=== PATIENT | male | born 1970 | race Caucasian/White ===

== ENCOUNTER 2019-06-08 09:05 | Emergency (ER) | payer SELFPAY ==
[~2019-06-08] VITALS: Ht 175.3 cm; Wt 83.3 kg
[~2019-06-08 09:05] MED LIST: no home meds
[2019-06-08 09:30] VITALS: BP 131/77
[2019-06-08] MEDS ORDERED: IV NORMAL SALINE 1000ML BAG 1,000 ML IV ONE (09:45)
--- NOTE | 2019-06-08 09:56 | PHYS DOC ---
Past Medical History Past Medical History: Asthma Past Surgical History: No Surgical History Alcohol Use: None Drug Use: None Adult General Chief Complaint Chief Complaint: ABDOMINAL PAIN HPI HPI Patient is a 48 year old male patient with history of asthma presented to the ED today complaining of moderate right upper quadrant abdominal pain for 2 weeks with nausea and vomiting and diarrhea for 2 days. Patient denies any hematemesis or melena. Denies any exacerbating or relieving factors. He states is not able to eat due to his symptoms. He reports he was seen at [place] a freestanding clinic for asthma symptoms and they told him to follow-up with a general surgeon as an outpatient for his gallbladder problems. He states he could not get any help over the foreign when he called the number they gave him. He also reports he was supposed to have his gallbladder removed in July 2018 but left the hospital AGAINST MEDICAL ADVICE. Review of Systems Review of Systems Constitutional: Denies fever or chills [] Eyes: Denies change in visual acuity, redness, or eye pain [] HENT: Denies nasal congestion or sore throat [] Respiratory: Denies cough or shortness of breath [] Cardiovascular: No additional information not addressed in HPI [] GI: Reports right upper quadrant abdominal pain with nausea vomiting and diarrhea : Denies dysuria or hematuria [] Musculoskeletal: Denies back pain or joint pain [] Integument: Denies rash or skin lesions [] Neurologic: Denies headache, focal weakness or sensory changes [] All other systems were reviewed and found to be within normal limits, except as documented in this note. Current Medications Current Medications Current Medications Medications (Trade) Dose Ordered Sig/[facility] Start Time Stop Time Status Last Admin Dose Admin Fentanyl Citrate (Fentanyl 2ml Vial) 50 mcg 1X ONCE 06/08/19 10:15 06/08/19 10:16 DC 06/08/19 10:06 50 MCG Ondansetron HCl (Zofran) 4 mg 1X ONCE 06/08/19 10:15 06/08/19 10:16 DC 06/08/19 10:03 4 MG Sodium Chloride 1,000 ml @ 1,000 mls/hr 1X ONCE 06/08/19 09:45 06/08/19 10:44 DC 06/08/19 10:03 1,000 MLS/HR Allergies Allergies Allergies Coded Allergies Type Severity Reaction Last Updated Verified No Known Drug Allergies 07/19/18 No Physical Exam Physical Exam Constitutional: Well developed, well nourished, no acute distress, non-toxic appearance. [] HENT: Normocephalic, atraumatic, bilateral external ears normal, oropharynx moist, no oral exudates, nose normal. [] Eyes: PERRLA, EOMI, conjunctiva normal, no discharge. [] Neck: Normal range of motion, no tenderness, supple, no stridor. [] Cardiovascular:Heart rate regular rhythm, no murmur [] Lungs & Thorax: Bilateral breath sounds clear to auscultation [] Abdomen: Bowel sounds normal, soft, mild tenderness in the right upper quadrant +negative Maciel sign, no right lower quadrant tenderness, no masses, no pulsatile masses. [] Skin: Warm, dry, no erythema, no rash. [] Back: No tenderness, no CVA tenderness. [] Extremities: No tenderness, no cyanosis, no clubbing, ROM intact, no edema. [] Neurologic: Alert and oriented X 3, normal motor function, normal sensory function, no focal deficits noted. [] Psychologic: Affect normal, judgement normal, mood normal. [] Current Patient Data Vital Signs Vital Signs Date Time Temp Pulse Resp B/P (MAP) Pulse Ox O2 Delivery O2 Flow Rate FiO2 06/08/19 10:06 20 99 Room Air 06/08/19 09:30 98.5 73 131/77 (95) 98.5 Lab Values Laboratory Tests Test 06/08/19 10:00 White Blood Count 5.3 x10^3/uL (4.0-11.0) Red Blood Count 5.49 x10^6/uL (4.30-5.70) Hemoglobin 17.2 g/dL (13.0-17.5) Hematocrit 49.6 % (39.0-53.0) Mean Corpuscular Volume 90 fL (79-100) Mean Corpuscular Hemoglobin 31 pg (25-35) Mean Corpuscular Hemoglobin Concent 35 g/dL (31-37) Red Cell Distribution Width 13.7 % (11.5-14.5) Platelet Count 168 x10^3/uL (140-400) Neutrophils (%) (Auto) 90 % (31-73) H Lymphocytes (%) (Auto) 8 % (24-48) L Monocytes (%) (Auto) 3 % (0-9) Eosinophils (%) (Auto) 0 % (0-3) Basophils (%) (Auto) 0 % (0-3) Neutrophils # (Auto) 4.8 x10^3/uL (1.8-7.7) Lymphocytes # (Auto) 0.4 x10^3/uL (1.0-4.8) L Monocytes # (Auto) 0.1 x10^3/uL (0.0-1.1) Eosinophils # (Auto) 0.0 x10^3/uL (0.0-0.7) Basophils # (Auto) 0.0 x10^3/uL (0.0-0.2) Segmented Neutrophils % 93 % (35-66) H Band Neutrophils % 2 % (0-9) Lymphocytes % 3 % (24-48) L Monocytes % 2 % (0-10) Platelet Estimate Adequate (ADEQUATE) Urine Color Nataliya Urine Clarity Clear Urine pH 6.0 Urine Specific [place] >=1.030 Urine Protein Negative mg/dL (NEG-TRACE) Urine Glucose (UA) Negative mg/dL (NEG) Urine Ketones (Stick) Negative mg/dL (NEG) Urine Blood Negative (NEG) Urine Nitrite Negative (NEG) Urine Bilirubin Small (NEG) Urine Urobilinogen Dipstick 0.2 mg/dL (0.2 mg/dL) Urine Leukocyte Esterase Negative (NEG) Urine RBC 0 /HPF (0-2) Urine WBC Occ /HPF (0-4) Urine Squamous Epithelial Cells None /LPF Urine Bacteria 0 /HPF (0-FEW) Urine Mucus Marked /LPF Sodium Level 141 mmol/L (136-145) Potassium Level 3.9 mmol/L (3.5-5.1) Chloride Level 106 mmol/L (98-107) Carbon Dioxide Level 24 mmol/L (21-32) Anion Gap 11 (6-14) Blood Urea Nitrogen 13 mg/dL (8-26) Creatinine 1.0 mg/dL (0.7-1.3) Estimated GFR (Cockcroft-Gault) 79.4 BUN/Creatinine Ratio 13 (6-20) Glucose Level 140 mg/dL (70-99) H Calcium Level 8.7 mg/dL (8.5-10.1) Total Bilirubin 0.4 mg/dL (0.2-1.0) Aspartate Amino Transferase (AST) 23 U/L (15-37) Alanine Aminotransferase (ALT) 14 U/L (16-63) L Alkaline Phosphatase 46 U/L (46-116) Total Protein 7.6 g/dL (6.4-8.2) Albumin 3.9 g/dL (3.4-5.0) Albumin/Globulin Ratio 1.1 (1.0-1.7) Lipase 93 U/L (73-393) Urine Opiates Screen Neg (NEG) Urine Methadone Screen Neg (NEG) Urine Barbiturates Neg (NEG) Urine Phencyclidine Screen Neg (NEG) Urine Amphetamine/Methamphetamine Neg (NEG) Urine Benzodiazepines Screen Neg (NEG) Urine Cocaine Screen Neg (NEG) Urine Cannabinoids Screen Neg (NEG) Ethyl Alcohol Level < 10 mg/dL (0-10) Urine Ethyl Alcohol Neg (NEG) Laboratory Tests 06/08/19 10:00 Laboratory Tests 06/08/19 10:00 EKG EKG [] Radiology/Procedures Radiology/Procedures []PROCEDURE: ABDOMEN LTD EXAM: Abdomen sonogram. HISTORY: Right upper quadrant pain. Cholelithiasis. TECHNIQUE: Sonographic imaging of the abdomen was performed. COMPARISON: 07/19/2018. FINDINGS: The liver is normal in size. No focal hepatic lesion is seen. The bladder wall is upper normal in thickness. There is cholelithiasis. There is a positive sonographic Maciel's sign. The common bile duct is normal in caliber. The pancreas and inferior vena cava are obscured due to bowel gas. The right kidney is unremarkable. IMPRESSION: 1. Cholelithiasis. There is a positive sonographic Maciel's sign. The gallbladder wall is upper normal in thickness. However, this is not clearly within limits to suggest cholecystitis. 2. Partially obscured midline structures due to bowel gas. Electronically signed by: Neda Ashby MD (06/08/2019 10:22 AM) [facility] DICTATED and SIGNED BY: NEDA ASHBY MD DATE: 06/08/19 1022 Course & Med Decision Making Course & Med Decision Making Pertinent Labs and Imaging studies reviewed. (See chart for details) This is a 48-year-old male patient presented to the ED today complaining of right upper quadrant abdominal pain with nausea vomiting and diarrhea. See history of present illness. Abdominal pain appears to been going on since July. He was diagnosed with cholelithiasis in July and was admitted to the hospital where he walked away again this medical advice. He presents today wanting his gallbladder removed. CBC with normal WBC, CMP would not acute findings, lipase is negative. Abdominal ultrasound was noted for cholelithiasis, no obvious cholecystitis. Results were communicated to patient and significant other, patient started demanding we remove his gallbladder now. He states he would only be admitted if we have a surgeon but will remove his gallbladder out. I he reports he does not have medical insurance and does not want to leave but we must remove his gallbladder if he stays. He was given demanding we called his surgeon Dr. Gardner now. Informed him Dr. Gardner is not sterile preparation technician. RN informs me he later signed out AMPrecious Sanchez Disclaimer Laura Disclaimer This electronic medical record was generated, in whole or in part, using a voice recognition dictation system. Departure Departure Impression: Primary Impression: Cholelithiasis Disposition: 07 AGAINST MEDICAL ADVICE Condition: STABLE Referrals: NO PCP (PCP) Problem Qualifiers Primary Impression: Cholelithiasis Cholelithiasis location: gallbladder Cholecystitis presence: without cholecystitis Biliary obstruction: without biliary obstruction Qualified Codes: K80.20 - Calculus of gallbladder without cholecystitis without obstruction [facility] DIRECT[facility] Jun 08, 2019 09:56
[2019-06-08 10:12] LABS: BASO % 0 % (0-3); EOS % 0 % (0-3); HEMATOCRIT 49.6 % (39.0-53.0); HEMOGLOBIN 17.2 g/dL (13.0-17.5); LYMPH # 0.4 x10^3/uL (1.0-4.8); LYMPH % 8 % (24-48); MEAN CORPUSCULAR HEMOGLOBIN 31 pg (25-35); MEAN CORPUSCULAR HGB CONC 35 g/dL (31-37); MEAN CORPUSCULAR VOLUME 90 fL (79-100); MONO # 0.1 x10^3/uL (0.0-1.1); MONO % 3 % (0-9); NEUT # 4.8 x10^3/uL (1.8-7.7); NEUT % 90 % (31-73); PLATELET COUNT 168 x10^3/uL (140-400); RED BLOOD COUNT 5.49 x10^6/uL (4.30-5.70); RED CELL DISTRIBUTION WIDTH 13.7 % (11.5-14.5); WHITE BLOOD COUNT 5.3 x10^3/uL (4.0-11.0)
[2019-06-08] MEDS ORDERED: fentaNYL PF VIAL 100 MCG/2 ML VIAL IVP ONE (10:15)
[2019-06-08] MEDS ORDERED: ONDANSETRON PF 4 MG/2 ML VIAL. IV ONE (10:15)
[2019-06-08 10:16] LABS: BILIRUBIN,URINE SMALL (NEG); CLARITY,URINE CLEAR; COLOR,URINE AMBER; NITRITE,URINE NEGATIVE (NEG); PROTEIN,URINE NEGATIVE (NEG-TRACE); UROBILINOGEN,URINE 0.2 mg/dL (0.2 mg/dL)
[2019-06-08 10:21] LABS: CALCIUM 8.7 mg/dL (8.5-10.1); GFR 79.4; POTASSIUM 3.9 mmol/L (3.5-5.1)
[2019-06-08 10:23] LABS: BARBITURATES NEG (NEG); BENZODIAZEPINES NEG (NEG); CANNABINOIDS NEG (NEG); COCAINE NEG (NEG); METHADONE NEG (NEG); OPIATES NEG (NEG); PHENCYCLIDINE NEG (NEG)
--- NOTE | 2019-06-08 10:24 | RAD ---
EXAM: Abdomen sonogram. HISTORY: Right upper quadrant pain. Cholelithiasis. TECHNIQUE: Sonographic imaging of the abdomen was performed. COMPARISON: 07/19/2018. FINDINGS: The liver is normal in size. No focal hepatic lesion is seen. The bladder wall is upper normal in thickness. There is cholelithiasis. There is a positive sonographic Maciel's sign. The common bile duct is normal in caliber. The pancreas and inferior vena cava are obscured due to bowel gas. The right kidney is unremarkable. IMPRESSION: 1. Cholelithiasis. There is a positive sonographic Maciel's sign. The gallbladder wall is upper normal in thickness. However, this is not clearly within limits to suggest cholecystitis. 2. Partially obscured midline structures due to bowel gas. Electronically signed by: Neda Corona MD (06/08/2019 10:22 AM) [facility]
[2019-06-08 10:27] LABS: ALBUMIN 3.9 g/dL (3.4-5.0); ALBUMIN/GLOBULIN RATIO 1.1 (1.0-1.7); AMPHETAMINE/METHAMPHETAMINE NEG (NEG); TOTAL BILIRUBIN 0.4 mg/dL (0.2-1.0); TOTAL PROTEIN 7.6 g/dL (6.4-8.2)
[2019-06-08 10:42] LABS: BACTERIA,URINE 0 /HPF (0-FEW); RBC,URINE 0 /HPF (0-2); WBC,URINE OCC /HPF (0-4)
[2019-06-08 10:59] LABS: % BANDS 2 % (0-9); % LYMPHS 3 % (24-48); % MONOS 2 % (0-10); % SEGS 93 % (35-66); PLT ESTIMATE ADEQUATE (ADEQUATE)
== END 2019-06-08 11:14 | disposition home or self-care (01) ==
LOC: ER 09:05
DX: K80.20 Calculus of gallbladder without cholecystitis without obstruction (principal); R11.2 Nausea with vomiting, unspecified; J45.909 Unspecified asthma, uncomplicated
CPT/HCPCS: 36415; 76705; 80053; 80307; 81001; 83690; 85007; 85025; 96361; 96374; 96375; 99285; G0480; J2405; J3010; J7030